=== PATIENT | female | born 1950 | race Caucasian/White ===

== ENCOUNTER 2022-11-20 23:46 | Inpatient (IN) | payer MEDICAID, OTHER ==
[~2022-11-20] VITALS: Ht 152.4 cm; Wt 59.6 kg
[~2022-11-20 23:46] MED LIST: ASPI-1420 PO; CALC667C6 PO; CARV25TA2 PO; DULA1.5P SQ; EZET10TA32 PO; FOLI0.4T6 PO; GABA300C PO; GLIP2.5T3 PO; LOSA50TA39 PO; MIRT-121 PO; NIFE90TA38 PO; SERT25TA5 PO; SIMV-49 PO; TRAZ-182 PO; ZOLP5TAB8 PO
[2022-11-21] VITALS (9 sets, daily range): BP systolic 160–208; BP diastolic 71–81; TEMP 97.4–98.3; O2SAT 96–100
[2022-11-21] MEDS ORDERED: IPRATROPIUM NEB FS 0.5 MG/2.5 ML AMPUL.NEB ONE (00:26)
[2022-11-21] MEDS ORDERED: ALBUTEROL FS 2.5 MG/3 ML VIAL.NEB ONE (00:26)
[2022-11-21] MEDS ORDERED: IPRATROPIUM NEB FS 0.5 MG/2.5 ML AMPUL.NEB NEB ONE (00:30)
[2022-11-21] MEDS ORDERED: ALBUTEROL FS 2.5 MG/3 ML VIAL.NEB CONTNEB ONE (00:30)
[2022-11-21 01:13] LABS: BASOPHILS # (AUTO) 0.2 K/uL (0.0-0.2); BASOPHILS % (AUTO) 1.7 % (0.0-2.0); EOSINOPHILS # (AUTO) 0.3 K/uL (0.0-0.7); EOSINOPHILS % (AUTO) 2.4 % (0.0-6.0); HEMATOCRIT 36 % (33-45); LYMPHOCYTES # (AUTO) 1.6 K/uL (0.8-4.8); MEAN CORPUSCULAR HEMOGLOBIN 28 PG (26.0-33.0); MEAN CORPUSCULAR HGB CONC 33 g/dl (31.0-36.0); MEAN CORPUSCULAR VOLUME 84 fL (82-100); MONOCYTES # (AUTO) 0.8 K/uL (0.1-1.30); MONOCYTES % (AUTO) 7.6 % (2.0-12.0); NEUTROPHILS % (AUTO) 73.3 % (43.0-81.0); PLATELET COUNT (AUTO) 205 K/uL (150-450); RED BLOOD CELL COUNT(AUTO) 4.35 MIL/uL (4.0-5.2); RED CELL DISTRIBUTION WIDTH 17.4 % (11.5-15.0); WHITE BLOOD COUNT (AUTO) 10.9 K/uL (4.3-11.0)
[2022-11-21 01:23] LABS: CALCIUM, SERUM 8.8 mg/dL (8.5-10.1); CARBON DIOXIDE 26 mmol/L (21-32); CHLORIDE 94 mmol/L (98-107); CREATININE 5.1 mg/dL (0.6-1.3); GLUCOSE 123 mg/dL (74-106); POTASSIUM 6.1 mmol/L (3.5-5.1); SODIUM SERUM 125 mmol/L (136-145); UREA NITROGEN, BLOOD 61 mg/dL (7-18)
[2022-11-21 01:23] LABS: ABG BASE EXCESS -0.5 mmol/L; ABG OXYGEN SATURATION 92.8 % (92.0-98.5); ABG PCO2 37.2 mmHg (35.0-45.0); ABG PH 7.421 (7.350-7.450); ABG PO2 67.9 mmHg (75.0-100.0); ABG TOTAL HEMOGLOBIN 12.7 G/dL (12.0-16.0); COHb 0.7 % (0.5-1.5); MetHb 0.1 % (0.0-1.5); O2Hb 92.1 % (94.0-97.0); SITE, ABG Right Brachial; VENT MODE, BG 2L NC
[2022-11-21 01:40] LABS: ALANINE AMINOTRANSFERASE 25 U/L (12-78); ALBUMIN 3.6 g/dL (3.4-5.0); ALKALINE PHOSPHATASE 142 U/L (46-116); ASPARTATE AMINOTRANSFERASE 23 U/L (15-37); BILIRUBIN,DIRECT 0.1 mg/dL (0.0-0.2); BILIRUBIN,TOTAL 0.3 mg/dL (0.2-1.0); NT-PRO BNP 21026 pg/mL (0-125); TOTAL PROTEIN, SERUM 7.2 g/dL (6.4-8.2)
[2022-11-21 01:43] LABS: INR 1.03 (0.91-1.10); PARTIAL THROMBOPLASTIN TIME 34.5 SEC (24.3-34.3); PROTHROMBIN TIME 10.8 SECS (9.2-11.1)
[2022-11-21] MEDS ORDERED: FUROSEMIDE 40 MG/4 ML VIAL IV ONE (02:00)
[2022-11-21] MEDS ORDERED: SODIUM POLYSTYRENE SULFONATE 15 G/60 ML BOTTLE PO ONE (02:00)
[2022-11-21] MEDS ORDERED: FUROSEMIDE 40 MG/4 ML VIAL ONE (02:02)
[2022-11-21] MEDS ORDERED: SODIUM POLYSTYRENE SULFONATE 15 G/60 ML BOTTLE ONE (02:02)
[2022-11-21] MEDS ORDERED: ACETAMINOPHEN 325 MG TABLET PO PRN (06:30)
[2022-11-21] MEDS ORDERED: ONDANSETRON HCL/PF 4 MG/2 ML VIAL IVP PRN (06:30)
[2022-11-21] MEDS ORDERED: DEXTROSE 50%-WATER 50 ML DISP.SYRIN IV PRN (06:30)
[2022-11-21] MEDS: INSULIN REGULAR, HUMAN 100 UNIT/ML 3 ML VIAL SQ PRN ×3 (07:11→16:44)
[2022-11-21] MEDS: BLOOD SUGAR DIAGNOSTIC 1 EACH STRIP IN SCH ×4 (07:15→22:14)
[2022-11-21] MEDS ORDERED: CETI10TA14 PO (08:24)
[2022-11-21] MEDS: HEPARIN SODIUM, PORCINE 5000 UNITS/1 ML VIAL SQ SCH ×2 (08:52→21:00)
[2022-11-22] VITALS: BP 127/70; TEMP 97.8; O2SAT 96
[2022-11-22] MEDS ORDERED: hydrALAZINE HCL IV 20 MG VIAL IV PRN (00:30)
[2022-11-22 04:00] VITALS: BP 190/69; TEMP 98.3; O2SAT 94
[2022-11-22] MEDS: BLOOD SUGAR DIAGNOSTIC 1 EACH STRIP IN SCH ×4 (05:51→21:47)
[2022-11-22 05:52] LABS: BASOPHILS % (AUTO) 0.9 % (0.0-2.0); EOSINOPHILS % (AUTO) 0.9 % (0.0-6.0); HEMATOCRIT 34 % (33-45); HEMOGLOBIN 11.2 g/dL (11.5-14.8); LYMPHOCYTES # (AUTO) 1.4 K/uL (0.8-4.8); LYMPHOCYTES % (AUTO) 24.7 % (20.0-44.0); MEAN CORPUSCULAR HEMOGLOBIN 27 PG (26.0-33.0); MEAN CORPUSCULAR HGB CONC 33 g/dl (31.0-36.0); MEAN CORPUSCULAR VOLUME 83 fL (82-100); MONOCYTES # (AUTO) 0.6 K/uL (0.1-1.30); MONOCYTES % (AUTO) 11.3 % (2.0-12.0); NEUTROPHILS # (AUTO) 3.5 K/uL (1.8-8.9); NEUTROPHILS % (AUTO) 62.2 % (43.0-81.0); PLATELET COUNT (AUTO) 195 K/uL (150-450); RED BLOOD CELL COUNT(AUTO) 4.13 MIL/uL (4.0-5.2); WHITE BLOOD COUNT (AUTO) 5.6 K/uL (4.3-11.0)
[2022-11-22] MEDS: LOSARTAN POTASSIUM 50 MG TABLET PO SCH ×2 (05:56→17:09)
[2022-11-22] MEDS ORDERED: LOSARTAN POTASSIUM 50 MG TABLET ONE (05:56)
[2022-11-22 07:00] VITALS: BP 201/58; TEMP 97.9; O2SAT 96
[2022-11-22 07:18] LABS: CARBON DIOXIDE 25 mmol/L (21-32); CHLORIDE 102 mmol/L (98-107); CREATININE 3.7 mg/dL (0.6-1.3); GLUCOSE 86 mg/dL (74-106); MAGNESIUM 2.1 mg/dL (1.8-2.4); PHOSPHORUS 3.9 mg/dL (2.5-4.9); SODIUM SERUM 137 mmol/L (136-145); UREA NITROGEN, BLOOD 34 mg/dL (7-18)
[2022-11-22] MEDS ORDERED: NIFEdipine XL (30MG) 30 MG TAB PO SCH (09:00)
[2022-11-22] MEDS: CARVEDILOL 12.5 MG TABLET PO SCH ×2 (09:23→17:09)
[2022-11-22] MEDS: HEPARIN SODIUM, PORCINE 5000 UNITS/1 ML VIAL SQ SCH ×2 (09:27→21:47)
[2022-11-22] MEDS ORDERED: CLONIDINE HCL 0.1 MG TABLET PO PRN (11:00)
[2022-11-22 12:00] VITALS: BP 199/66; TEMP 97.6; O2SAT 95
[2022-11-22] MEDS: NIFEdipine XL (30MG) 30 MG TAB PO SCH ×2 (12:30→21:46)
[2022-11-22 16:00] VITALS: BP 152/51; TEMP 97.8; O2SAT 95
[2022-11-22 20:00] VITALS: BP 149/58; TEMP 97.6; O2SAT 95
[2022-11-22] MEDS: SIMVASTATIN 20 MG TABLET PO SCH (21:46)
[2022-11-22] MEDS: INSULIN REGULAR, HUMAN 100 UNIT/ML 3 ML VIAL SQ PRN (21:50)
[2022-11-23] VITALS: BP 149/62; TEMP 98.7; O2SAT 94
[2022-11-23 05:22] VITALS: BP 130/52; TEMP 97.8; O2SAT 94
[2022-11-23 06:12] LABS: BASOPHILS # (AUTO) 0.1 K/uL (0.0-0.2); EOSINOPHILS # (AUTO) 0.2 K/uL (0.0-0.7); EOSINOPHILS % (AUTO) 2.3 % (0.0-6.0); HEMATOCRIT 31 % (33-45); HEMOGLOBIN 10.3 g/dL (11.5-14.8); LYMPHOCYTES # (AUTO) 1.9 K/uL (0.8-4.8); LYMPHOCYTES % (AUTO) 28.9 % (20.0-44.0); MEAN CORPUSCULAR HEMOGLOBIN 28 PG (26.0-33.0); MEAN CORPUSCULAR HGB CONC 33 g/dl (31.0-36.0); MEAN CORPUSCULAR VOLUME 84 fL (82-100); MONOCYTES # (AUTO) 0.7 K/uL (0.1-1.30); MONOCYTES % (AUTO) 10.5 % (2.0-12.0); NEUTROPHILS # (AUTO) 3.8 K/uL (1.8-8.9); NEUTROPHILS % (AUTO) 57.3 % (43.0-81.0); PLATELET COUNT (AUTO) 198 K/uL (150-450); RED BLOOD CELL COUNT(AUTO) 3.72 MIL/uL (4.0-5.2); RED CELL DISTRIBUTION WIDTH 17.5 % (11.5-15.0); WHITE BLOOD COUNT (AUTO) 6.6 K/uL (4.3-11.0)
[2022-11-23] MEDS: BLOOD SUGAR DIAGNOSTIC 1 EACH STRIP IN SCH ×4 (06:38→21:46)
[2022-11-23 07:00] VITALS: BP 149/58; TEMP 98.3; O2SAT 96
[2022-11-23 07:34] LABS: ALANINE AMINOTRANSFERASE 22 U/L (12-78); ALKALINE PHOSPHATASE 103 U/L (46-116); ASPARTATE AMINOTRANSFERASE 18 U/L (15-37); BILIRUBIN,TOTAL 0.4 mg/dL (0.2-1.0); CALCIUM, SERUM 8.4 mg/dL (8.5-10.1); CARBON DIOXIDE 24 mmol/L (21-32); CHLORIDE 101 mmol/L (98-107); CREATININE 4.6 mg/dL (0.6-1.3); GLUCOSE 92 mg/dL (74-106); MAGNESIUM 1.9 mg/dL (1.8-2.4); PHOSPHORUS 4.6 mg/dL (2.5-4.9); POTASSIUM 4.4 mmol/L (3.5-5.1); SODIUM SERUM 135 mmol/L (136-145); TOTAL PROTEIN, SERUM 6.1 g/dL (6.4-8.2); UREA NITROGEN, BLOOD 51 mg/dL (7-18)
[2022-11-23] MEDS: NIFEdipine XL (30MG) 30 MG TAB PO SCH ×2 (09:42→20:53)
[2022-11-23] MEDS: CARVEDILOL 12.5 MG TABLET PO SCH ×2 (09:42→17:42)
[2022-11-23] MEDS: HEPARIN SODIUM, PORCINE 5000 UNITS/1 ML VIAL SQ SCH ×2 (09:43→20:59)
[2022-11-23] MEDS: LOSARTAN POTASSIUM 50 MG TABLET PO SCH ×2 (09:48→17:41)
[2022-11-23 16:00] VITALS: BP 147/54; TEMP 98.2; O2SAT 97
[2022-11-23] MEDS: INSULIN REGULAR, HUMAN 100 UNIT/ML 3 ML VIAL SQ PRN (17:39)
[2022-11-23 20:00] VITALS: BP 125/45; TEMP 99.1; O2SAT 94
[2022-11-23] MEDS: SIMVASTATIN 20 MG TABLET PO SCH (21:36)
[2022-11-24 04:00] VITALS: BP 141/52; TEMP 98.3; O2SAT 95
[2022-11-24 05:49] LABS: BASOPHILS # (AUTO) 0.1 K/uL (0.0-0.2); EOSINOPHILS # (AUTO) 0.1 K/uL (0.0-0.7); EOSINOPHILS % (AUTO) 1.9 % (0.0-6.0); HEMATOCRIT 33 % (33-45); HEMOGLOBIN 10.6 g/dL (11.5-14.8); LYMPHOCYTES # (AUTO) 2.1 K/uL (0.8-4.8); LYMPHOCYTES % (AUTO) 30.1 % (20.0-44.0); MEAN CORPUSCULAR HEMOGLOBIN 27 PG (26.0-33.0); MEAN CORPUSCULAR HGB CONC 33 g/dl (31.0-36.0); MEAN CORPUSCULAR VOLUME 84 fL (82-100); MONOCYTES # (AUTO) 0.7 K/uL (0.1-1.30); MONOCYTES % (AUTO) 9.9 % (2.0-12.0); NEUTROPHILS # (AUTO) 3.9 K/uL (1.8-8.9); NEUTROPHILS % (AUTO) 57.1 % (43.0-81.0); PLATELET COUNT (AUTO) 223 K/uL (150-450); RED BLOOD CELL COUNT(AUTO) 3.88 MIL/uL (4.0-5.2); RED CELL DISTRIBUTION WIDTH 17.2 % (11.5-15.0); WHITE BLOOD COUNT (AUTO) 6.8 K/uL (4.3-11.0)
[2022-11-24 06:00] LABS: CALCIUM, SERUM 8.6 mg/dL (8.5-10.1); CARBON DIOXIDE 24 mmol/L (21-32); CHLORIDE 104 mmol/L (98-107); CREATININE 3.7 mg/dL (0.6-1.3); GLUCOSE 90 mg/dL (74-106); POTASSIUM 4.1 mmol/L (3.5-5.1); SODIUM SERUM 137 mmol/L (136-145); UREA NITROGEN, BLOOD 28 mg/dL (7-18)
[2022-11-24] MEDS: BLOOD SUGAR DIAGNOSTIC 1 EACH STRIP IN SCH ×4 (07:04→22:48)
[2022-11-24 08:00] VITALS: BP 160/64; TEMP 98.6; O2SAT 94
[2022-11-24] MEDS: NIFEdipine XL (30MG) 30 MG TAB PO SCH ×2 (09:19→21:03)
[2022-11-24] MEDS: LOSARTAN POTASSIUM 50 MG TABLET PO SCH ×2 (09:20→17:25)
[2022-11-24] MEDS: CARVEDILOL 12.5 MG TABLET PO SCH ×2 (09:20→17:25)
[2022-11-24] MEDS: HEPARIN SODIUM, PORCINE 5000 UNITS/1 ML VIAL SQ SCH ×2 (09:21→20:43)
[2022-11-24] MEDS: INSULIN REGULAR, HUMAN 100 UNIT/ML 3 ML VIAL SQ PRN ×3 (11:10→22:50)
[2022-11-24 19:00] VITALS: BP 151/53; TEMP 97.6; O2SAT 92
[2022-11-24 21:03] VITALS: BP 151/53
[2022-11-24] MEDS: SIMVASTATIN 20 MG TABLET PO SCH (21:05)
[2022-11-25 08:07] LABS: HEPATITIS B CORE AB, IgM Negative (Negative); HEPATITIS B SURFACE AB Non Reactive (.)
== END 2022-11-25 00:20 | disposition home or self-care (01) | DRG 194 ==
LOC: ER 23:48 → TELE 11-21 03:19 → MED 11-23 10:23
PROVIDERS: ADMIT Internal Medicine; ATTEND Internal Medicine
PROC: 5A1D70Z Performance of Urinary Filtration, Intermittent, Less than 6 Hours Per Day (ICD-10-PCS; principal; 2022-11-21)
DX: I13.2 Hypertensive heart and chronic kidney disease with heart failure and with stage 5 chronic kidney disease, or end stage renal disease (principal); J96.01 Acute respiratory failure with hypoxia; I31.39 Other pericardial effusion (noninflammatory); E87.1 Hypo-osmolality and hyponatremia; N18.6 End stage renal disease; E11.22 Type 2 diabetes mellitus with diabetic chronic kidney disease; D64.9 Anemia, unspecified; Z79.899 Other long term (current) drug therapy; E87.5 Hyperkalemia; G62.9 Polyneuropathy, unspecified; E78.5 Hyperlipidemia, unspecified; F32.9 Major depressive disorder, single episode, unspecified; I16.0 Hypertensive urgency; N25.0 Renal osteodystrophy; Z99.2 Dependence on renal dialysis; F99 Mental disorder, not otherwise specified; I35.0 Nonrheumatic aortic (valve) stenosis; I50.33 Acute on chronic diastolic (congestive) heart failure; Z79.4 Long term (current) use of insulin
CPT/HCPCS: 36415; 36600; 71045-TC; 72220-TC; 80048-TC; 80053-TC; 80076-TC; 82803-TC; 82962-TC; 83735-TC; 83880; 84100-TC; 84484-TC; 85025-TC; 85730-TC; 86705; 86706; 86803; 87340; 90935-TC; 93307-TC; 93308-TC; 94799-TC; 97116-TC; 97530-TC; A6403; G0378; J1644; J1815; J1940; J7030

== ENCOUNTER 2023-10-02 05:46 | Inpatient (IN) | payer OTHER ==
[~2023-10-02] VITALS: Ht 170.2 cm; Wt 72.6 kg
[~2023-10-02 05:46] MED LIST changes: -ASPI-1420 PO; -CALC667C6 PO; +CETI10TA14 PO; -DULA1.5P SQ; -EZET10TA32 PO; -FOLI0.4T6 PO; -GABA300C PO; -MIRT-121 PO; -TRAZ-182 PO; -ZOLP5TAB8 PO
[2023-10-02 06:21] LABS: BASOPHILS # (AUTO) 0.1 K/uL (0.0-0.2); BASOPHILS % (AUTO) 0.5 % (0.0-2.0); EOSINOPHILS # (AUTO) 0.2 K/uL (0.0-0.7); EOSINOPHILS % (AUTO) 1.2 % (0.0-6.0); HEMATOCRIT 31 % (33-45); HEMOGLOBIN 10.4 g/dL (11.5-14.8); LYMPHOCYTES # (AUTO) 1.1 K/uL (0.8-4.8); LYMPHOCYTES % (AUTO) 8.5 % (20.0-44.0); MEAN CORPUSCULAR HEMOGLOBIN 29 PG (26.0-33.0); MEAN CORPUSCULAR HGB CONC 34 g/dl (31.0-36.0); MEAN CORPUSCULAR VOLUME 86 fL (82-100); MONOCYTES % (AUTO) 7.5 % (2.0-12.0); NEUTROPHILS # (AUTO) 11.2 K/uL (1.8-8.9); NEUTROPHILS % (AUTO) 82.3 % (43.0-81.0); PLATELET COUNT (AUTO) 238 K/uL (150-450); RED BLOOD CELL COUNT(AUTO) 3.59 MIL/uL (4.0-5.2); RED CELL DISTRIBUTION WIDTH 17.9 % (11.5-15.0); WHITE BLOOD COUNT (AUTO) 13.6 K/uL (4.3-11.0)
[2023-10-02 06:27] LABS: CALCIUM, SERUM 8.6 mg/dL (8.5-10.1); CARBON DIOXIDE 21 mmol/L (21-32); CHLORIDE 93 mmol/L (98-107); GLUCOSE 230 mg/dL (74-106); SODIUM SERUM 129 mmol/L (136-145)
[2023-10-02 06:32] LABS: INR 1.04 (0.91-1.10); PARTIAL THROMBOPLASTIN TIME 33.5 SEC (24.3-34.3)
[2023-10-02 06:34] LABS: CREATININE 8.2 mg/dL (0.6-1.3); POTASSIUM 6.2 mmol/L (3.5-5.1); UREA NITROGEN, BLOOD 90 mg/dL (7-18)
[2023-10-02 06:42] LABS: NT-PRO BNP > 25000 pg/mL (0-125)
[2023-10-02 06:44] LABS: ALBUMIN 3.5 g/dL (3.4-5.0); BILIRUBIN,DIRECT 0.1 mg/dL (0.0-0.2); BILIRUBIN,TOTAL 0.5 mg/dL (0.2-1.0)
[2023-10-02] MEDS ORDERED: Calcium Gluconate 0.465 MEQ/ML VIAL IV ONE (06:49)
[2023-10-02] MEDS ORDERED: SODIUM BICARBONATE SYR 50 MEQ/50 ML DISP.SYRIN ONE (06:50)
[2023-10-02 06:57] VITALS: O2SAT 99
[2023-10-02] MEDS: ALBUTEROL FS 2.5 MG/3 ML VIAL.NEB NEB ONE (06:57)
[2023-10-02] MEDS ORDERED: ALBUTEROL FS 2.5 MG/3 ML VIAL.NEB ONE (06:58)
[2023-10-02] MEDS: SODIUM BICARBONATE SYR 50 MEQ/50 ML DISP.SYRIN IV ONE (07:04)
[2023-10-02] MEDS: Calcium Gluconate 1GM/10ML 4.65 MEQ in IV NS 0.9% 100 ML IV ONE (07:04)
[2023-10-02 07:33] VITALS: O2SAT 100
[2023-10-02] MEDS ORDERED: IV NS 0.9% 250 ML IV ONE (07:51)
[2023-10-02] MEDS ORDERED: IOHEXOL-350 100 ML VIAL IV ONE (07:51)
[2023-10-02] MEDS ORDERED: CT SWABBABLE VALVE TRANS SET 1 EA INFUS.SET MC ONE (07:51)
[2023-10-02 09:30] LABS: APPEARANCE,URINE SLIGHTLY CLOUDY (CLEAR); BILIRUBIN,URINE NEGATIVE (NEGATIVE); BLOOD, URINE NEGATIVE Ery/uL (NEGATIVE); COLOR,URINE YELLOW (YELLOW); KETONES,URINE TRACE mg/dL (NEGATIVE); LEUKOCYTE ESTERASE ,URINE NEGATIVE (NEGATIVE); NITRITE, URINE NEGATIVE (NEGATIVE); PROTEIN,URINE 3+ mg/dl (NEGATIVE); UGLUCOSE TRACE mg/dL (NEGATIVE); UROBILINOGEN,URINE 0.2 EU/dL (0.2)
[2023-10-02 09:39] LABS: ADD URINE CULTURE NO; BACTERIA,URINE Rare /HPF (None Seen); SQUAMOUS EPITHELIAL CELL,UR Rare /HPF (None Seen); WBC,URINE 0-2 /HPF (0-3)
[2023-10-02 12:00] VITALS: BP 170/58; TEMP 97.9; O2SAT 99
[2023-10-02] MEDS ORDERED: Z GUARD REMEDY 4 OZ OINT TP PRN (12:00)
[2023-10-02] MEDS ORDERED: ONDANSETRON HCL/PF 4 MG/2 ML VIAL IVP PRN (12:00)
[2023-10-02] MEDS ORDERED: FLUT16SP BNOSTRILS (12:12)
[2023-10-02] MEDS ORDERED: CLON0.1T PO (12:12)
[2023-10-02] MEDS ORDERED: MIRT-90 PO (12:12)
[2023-10-02] MEDS ORDERED: FURO40TA5 PO (12:12)
[2023-10-02] MEDS ORDERED: HYDR-4077 PO (12:12)
[2023-10-02] MEDS ORDERED: NIFE30TA91 PO (12:12)
[2023-10-02] MEDS ORDERED: SERT50TA12 PO (12:12)
[2023-10-02 16:00] VITALS: BP 195/75; TEMP 97.9; O2SAT 99
[2023-10-02] MEDS: LOSARTAN POTASSIUM 50 MG TABLET PO SCH (17:58)
[2023-10-02] MEDS: FUROSEMIDE 40 MG TABLET PO SCH (17:58)
[2023-10-02] MEDS: hydrALAZINE HCL 50 MG TABLET PO SCH (17:58)
[2023-10-02] MEDS: CLONIDINE HCL 0.1 MG TABLET PO SCH (17:59)
[2023-10-02] MEDS: FLUTICASONE PROPIONATE 16 GM BOTTLE NS SCH (17:59)
[2023-10-02 19:45] VITALS: O2SAT 97
[2023-10-02 20:00] VITALS: BP 196/64; TEMP 98.2; O2SAT 99
[2023-10-02] MEDS: SERTRALINE HCL 50 MG TABLET PO SCH (21:44)
[2023-10-02] MEDS: MIRTAZAPINE 15 MG TABLET PO SCH (21:44)
[2023-10-02] MEDS: SIMVASTATIN 20 MG TABLET PO SCH (21:45)
[2023-10-03] VITALS (7 sets, daily range): BP systolic 171–233; BP diastolic 55–90; TEMP 98.1–100.6; O2SAT 97–99
[2023-10-03 07:28] LABS: BASOPHILS % (AUTO) 0.6 % (0.0-2.0); EOSINOPHILS % (AUTO) 0.4 % (0.0-6.0); HEMATOCRIT 28 % (33-45); HEMOGLOBIN 9.6 g/dL (11.5-14.8); LYMPHOCYTES # (AUTO) 1.5 K/uL (0.8-4.8); LYMPHOCYTES % (AUTO) 17.7 % (20.0-44.0); MEAN CORPUSCULAR HEMOGLOBIN 30 PG (26.0-33.0); MEAN CORPUSCULAR HGB CONC 35 g/dl (31.0-36.0); MEAN CORPUSCULAR VOLUME 86 fL (82-100); MONOCYTES # (AUTO) 0.9 K/uL (0.1-1.30); MONOCYTES % (AUTO) 10.7 % (2.0-12.0); NEUTROPHILS # (AUTO) 5.8 K/uL (1.8-8.9); NEUTROPHILS % (AUTO) 70.6 % (43.0-81.0); PLATELET COUNT (AUTO) 187 K/uL (150-450); RED BLOOD CELL COUNT(AUTO) 3.24 MIL/uL (4.0-5.2); RED CELL DISTRIBUTION WIDTH 16.9 % (11.5-15.0); WHITE BLOOD COUNT (AUTO) 8.3 K/uL (4.3-11.0)
[2023-10-03 07:44] LABS: CHOLESTEROL 114 mg/dL (<200); HDL CHOLESTEROL 68 mg/dL (40-60); LDL 26 mg/dL (0-99); TRIGLYCERIDES 110 mg/dL (30-150)
[2023-10-03 08:10] LABS: ALANINE AMINOTRANSFERASE 15 U/L (12-78); ALBUMIN 2.9 g/dL (3.4-5.0); ALKALINE PHOSPHATASE 90 U/L (46-116); ASPARTATE AMINOTRANSFERASE 10 U/L (15-37); BILIRUBIN,TOTAL 0.5 mg/dL (0.2-1.0); CALCIUM, SERUM 8.6 mg/dL (8.5-10.1); CARBON DIOXIDE 24 mmol/L (21-32); CHLORIDE 97 mmol/L (98-107); CREATININE 5.2 mg/dL (0.6-1.3); GLUCOSE 85 mg/dL (74-106); MAGNESIUM 2.3 mg/dL (1.8-2.4); PHOSPHORUS 4.3 mg/dL (2.5-4.9); POTASSIUM 4.5 mmol/L (3.5-5.1); SODIUM SERUM 134 mmol/L (136-145); TOTAL PROTEIN, SERUM 6.3 g/dL (6.4-8.2); UREA NITROGEN, BLOOD 43 mg/dL (7-18)
[2023-10-03] MEDS: NIFEdipine XL (30MG) 30 MG TAB PO SCH (08:41)
[2023-10-03] MEDS: CARVEDILOL 12.5 MG TABLET PO SCH (08:41)
[2023-10-03] MEDS: PANTOPRAZOLE 40 MG TABLET.DR PO SCH (08:44)
[2023-10-03] MEDS: ACETAMINOPHEN 325 MG TABLET PO PRN (16:22)
[2023-10-03] MEDS ORDERED: NITROGLYCERIN 30 GM TUBE TP SCH (17:00)
[2023-10-03] MEDS: NITROGLYCERIN 30 GM TUBE TP PRN (17:04)
[2023-10-04] VITALS: BP 179/62; TEMP 98.8; O2SAT 98
[2023-10-04 04:00] VITALS: BP 178/54; TEMP 99.5; O2SAT 96
[2023-10-04 05:09] LABS: HEPATITIS B SURFACE AB Non Reactive (.)
[2023-10-04 08:00] VITALS: BP 170/58; TEMP 99.1; O2SAT 96
[2023-10-04] MEDS: NIFEdipine XL (30MG) 30 MG TAB PO SCH (09:01)
[2023-10-04 12:00] VITALS: BP 146/42; TEMP 98.8; O2SAT 99
[2023-10-04] MEDS ORDERED: HYDR-4077 PO (13:11)
[2023-10-04 16:00] VITALS: BP 160/50; TEMP 98.2; O2SAT 96
[2023-10-04 20:26] VITALS: BP 181/56
== END 2023-10-04 20:50 | disposition home or self-care (01) | DRG 425 ==
LOC: ER 05:47 → TELE1 09:46 → MEDSG1 10-04 14:51
PROC: 5A1D70Z Performance of Urinary Filtration, Intermittent, Less than 6 Hours Per Day (ICD-10-PCS; principal; 2023-10-02)
DX: E87.5 Hyperkalemia (principal); I13.2 Hypertensive heart and chronic kidney disease with heart failure and with stage 5 chronic kidney disease, or end stage renal disease; J96.01 Acute respiratory failure with hypoxia; I31.39 Other pericardial effusion (noninflammatory); E87.1 Hypo-osmolality and hyponatremia; E11.22 Type 2 diabetes mellitus with diabetic chronic kidney disease; D64.9 Anemia, unspecified; N18.6 End stage renal disease; E11.42 Type 2 diabetes mellitus with diabetic polyneuropathy; E78.5 Hyperlipidemia, unspecified; F32.9 Major depressive disorder, single episode, unspecified; I50.9 Heart failure, unspecified; Z99.2 Dependence on renal dialysis; Z91.158 Patient's noncompliance with renal dialysis for other reason; J98.11 Atelectasis; M89.8X9 Other specified disorders of bone, unspecified site; Z79.899 Other long term (current) drug therapy; Z88.8 Allergy status to other drugs, medicaments and biological substances; G31.84 Mild cognitive impairment of uncertain or unknown etiology; I25.10 Atherosclerotic heart disease of native coronary artery without angina pectoris; Z79.4 Long term (current) use of insulin; Z90.49 Acquired absence of other specified parts of digestive tract
CPT/HCPCS: 36415; 71045-TC; 80048-TC; 80053-TC; 80061-TC; 80076-TC; 81001; 83690-TC; 83735-TC; 83880; 83935-TC; 84100-TC; 84300-TC; 84443-TC; 84484-TC; 85025-TC; 85730-TC; 86706; 87081-TC; 87340; 90935-TC; 93307-TC; 94799-TC; 97112-TC; 97116-TC; 97530-TC; A4223; G0378; J0610; J3490; J7030; J7050; Q9967

== ENCOUNTER 2023-11-01 06:59 | Emergency (ER) | payer OTHER ==
[~2023-11-01] VITALS: Ht 157.5 cm; Wt 61.2 kg
[~2023-11-01 06:59] MED LIST changes: -CETI10TA14 PO; +CLON0.1T PO; +FLUT16SP BNOSTRILS; +FURO40TA5 PO; -GLIP2.5T3 PO; +HYDR-4077 PO; +MIRT-90 PO; +NIFE30TA91 PO; -NIFE90TA38 PO; -SERT25TA5 PO; +SERT50TA12 PO
[2023-11-01 07:05] VITALS: TEMP 98.7
[2023-11-01] MEDS ORDERED: FUROSEMIDE 40 MG/4 ML VIAL ONE (07:19)
[2023-11-01] MEDS: FUROSEMIDE 40 MG/4 ML VIAL IV ONE (07:25)
[2023-11-01 07:26] LABS: BASOPHILS # (AUTO) 0.1 K/uL (0.0-0.2); BASOPHILS % (AUTO) 1.4 % (0.0-2.0); EOSINOPHILS # (AUTO) 0.2 K/uL (0.0-0.7); EOSINOPHILS % (AUTO) 2.3 % (0.0-6.0); HEMATOCRIT 24 % (33-45); HEMOGLOBIN 8.1 g/dL (11.5-14.8); LYMPHOCYTES % (AUTO) 13.5 % (20.0-44.0); MEAN CORPUSCULAR HEMOGLOBIN 30 PG (26.0-33.0); MEAN CORPUSCULAR HGB CONC 34 g/dl (31.0-36.0); MEAN CORPUSCULAR VOLUME 89 fL (82-100); MONOCYTES # (AUTO) 0.6 K/uL (0.1-1.30); MONOCYTES % (AUTO) 8.9 % (2.0-12.0); NEUTROPHILS # (AUTO) 5.2 K/uL (1.8-8.9); NEUTROPHILS % (AUTO) 73.9 % (43.0-81.0); PLATELET COUNT (AUTO) 253 K/uL (150-450); RED BLOOD CELL COUNT(AUTO) 2.69 MIL/uL (4.0-5.2); RED CELL DISTRIBUTION WIDTH 15.2 % (11.5-15.0); WHITE BLOOD COUNT (AUTO) 7.1 K/uL (4.3-11.0)
[2023-11-01 07:35] LABS: CALCIUM, SERUM 8.5 mg/dL (8.5-10.1); CARBON DIOXIDE 29 mmol/L (21-32); CHLORIDE 96 mmol/L (98-107); CREATININE 5.2 mg/dL (0.6-1.3); GLUCOSE 171 mg/dL (74-106); POTASSIUM 5.2 mmol/L (3.5-5.1); SODIUM SERUM 133 mmol/L (136-145); UREA NITROGEN, BLOOD 49 mg/dL (7-18)
[2023-11-01 07:48] LABS: ALANINE AMINOTRANSFERASE 25 U/L (12-78); ALBUMIN 2.9 g/dL (3.4-5.0); ALKALINE PHOSPHATASE 93 U/L (46-116); ASPARTATE AMINOTRANSFERASE 16 U/L (15-37); BILIRUBIN,DIRECT 0.2 mg/dL (0.0-0.2); BILIRUBIN,TOTAL 0.5 mg/dL (0.2-1.0); TOTAL PROTEIN, SERUM 6.4 g/dL (6.4-8.2)
[2023-11-01 08:50] LABS: NT-PRO BNP > 25000 pg/mL (0-125)
[2023-11-01 13:17] VITALS: BP 184/64; O2SAT 98
== END 2023-11-01 13:24 ==
LOC: ER 07:04
DX: I13.2 Hypertensive heart and chronic kidney disease with heart failure and with stage 5 chronic kidney disease, or end stage renal disease (principal); I50.9 Heart failure, unspecified; N18.6 End stage renal disease; E11.22 Type 2 diabetes mellitus with diabetic chronic kidney disease; E87.70 Fluid overload, unspecified; E78.5 Hyperlipidemia, unspecified; Z98.890 Other specified postprocedural states; Z79.899 Other long term (current) drug therapy; Z88.1 Allergy status to other antibiotic agents
CPT/HCPCS: 99285; 96374; 71045; 93005; 85025; 80048; 80076; 36415; 84484 ×2; 83880; 82962; J1940